=== PATIENT | male | born 1970 | race Hispanic/Latino ===

== ENCOUNTER 2017-05-21 21:21 | Emergency (ER) | payer MEDICARE ==
[2017-05-21 21:22] VITALS: BMI 36.1
[2017-05-21 21:35] VITALS: RESP 18; TEMP 98.2
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
[2017-05-21 23:39] VITALS: BP 142/95; PULSE 84; O2SAT 100
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
== END 2017-05-21 23:28 | disposition home or self-care (01) ==
LOC: ED 21:21
DX: S16.1XXA Strain of muscle, fascia and tendon at neck level, initial encounter (principal); S72.412A Displaced unspecified condyle fracture of lower end of left femur, initial encounter for closed fracture; V49.9XXA Car occupant (driver) (passenger) injured in unspecified traffic accident, initial encounter; I10 Essential (primary) hypertension